=== PATIENT | female | born 1965 | race Caucasian/White ===

== ENCOUNTER 2019-03-03 06:54 | Day surgery (SDC) | payer BC ==
[2019-03-03] MEDS ORDERED: Propofol 200 MG/20 ML SDV IV ONE (06:55)
[2019-03-03] MEDS ORDERED: Sodium Chloride 0.9% 10 ML Syringe FLUSH PRN (07:00)
[2019-03-03] MEDS ORDERED: Lactated Ringers 1,000 ML IV SCH (07:00)
--- NOTE | 2019-03-03 09:03 | PCM.OPNOTE ---
- General Post-Op/Procedure Note Date of Surgery/Procedure: 03/03/19 Operative Procedure(s): c scope with bx Findings: cecal and rectal polyp Pre Op Diagnosis: colon cancer screening Post-Op Diagnosis: cecal and rectal polyp Anesthesia Technique: MAC Primary Surgeon: Juan M Roberson Anesthesia Provider: Angie Tsang Pathology: cecal and rectal polyp Complications: None Condition: Good Free Text/Narrative:: see dictation
--- NOTE | 2019-03-03 15:19 | OR ---
DATE OF OPERATION: 03/03/2019 SURGEON: Juan M Roberson MD PREOPERATIVE DIAGNOSIS: Screening for colon cancer. POSTOPERATIVE DIAGNOSIS: Rectal and cecal polyp. PROCEDURE PERFORMED: Colonoscopy with cold forceps biopsy. INDICATIONS FOR PROCEDURE: This is a 53-year-old white female, who presents for her initial screening colonoscopy. Has a family history of colon polyps with her father. DESCRIPTION OF OPERATION: After an excellent IV sedation was administered, digital rectal exam was performed. No marked abnormality was noted. A flexible colonoscope inserted and advanced to the cecum. Prep was excellent. Following findings were noted: In the cecum, small polypoid lesion, biopsied with cold biopsy forceps and sent for permanent, otherwise unremarkable. Transverse colon, unremarkable. Descending colon, unremarkable. Sigmoid, unremarkable. Rectum, small polyp just above the anal verge, again biopsied. The patient tolerated the procedure well and was taken to recovery in good condition. Results by letter. /[id number] /CINTHIA
--- NOTE | 2019-03-04 08:15 | PCM.HP.2 ---
H&P History of Present Illness - General Date of Service: 03/04/19 Admit Problem/Dx: Admission Diagnosis/Problem Admission Diagnosis/Problem Colonoscopy - History of Present Illness Initial Comments - Free Text/Narative: 53 yo wf due for screening c scope no complaints. Last office visit reviewed. - Related Data Allergies/Adverse Reactions: Allergies Allergy/AdvReac Type Severity Reaction Status Date / Time No Known Allergies Allergy Verified 03/03/19 07:26 Home Medications: Home Meds Acetaminophen 500 mg PO Q4HR PRN 03/02/19 [History] Albuterol [Proventil HFA] 2 puff PO Q4H PRN 03/02/19 [History] Calcium Carb/Vitamin D3/Vit K1 [Viactiv 650 mg-12.5 Mcg Chew] 1 each PO DAILY [History] FLUoxetine HCl [Prozac] 40 mg PO DAILY 03/02/19 [History] Multivit-Min/FA/Lycopen/Lutein [Certavite Sr-Antioxidant Tab] 1 each PO DAILY [History] Naproxen Sodium [Aleve] 220 mg PO BID PRN 03/02/19 [History] Omeprazole Magnesium [Prilosec Otc] 20 mg PO DAILY 03/02/19 [History] Cephalexin [Keflex] 500 mg PO Q6H 03/03/19 [History] Past Medical History Respiratory History: Reports: Asthma Genitourinary History: Reports: Renal Calculus Other Genitourinary History: URETERAL CALCULUS Other OB/BYN History: PREMENSTRUAL TENSION SYNDROME Musculoskeletal History: Reports: Arthritis Other Musculoskeletal History: 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, INFECTED PROSTHETIC KNEE JOINT Psychiatric History: Reports: Anxiety, Depression Oncologic (Cancer) History: Reports: Breast Other Oncologic History: FIBROCYSTIC BREAST Dermatologic History: Reports: Cellulitis - Past Surgical History Other HEENT Surgeries/Procedures: EXTRACTION ERUPTED TOOTH GI Surgical History: Reports: Appendectomy, Hernia, Abdominal Female Surgical History: Reports: Section Musculoskeletal Surgical History: Reports: Arthroscopic Knee, Carpal Tunnel, Knee Replacement Other Musculoskeletal Surgeries/Procedures:: LEFT TOTAL KNEE REVISION, LEFT KNEE MANIPULATION INJECTION, LEFT KNEE ARTHROPLASTY Other Oncologic Surgeries/Procedures: BREAST REDUCTION, MAMMOPLASTY BILATERAL Social & Family History - Tobacco Use Smoking Status *Q: Never Smoker - Caffeine Use Caffeine Use: Reports: Coffee, Soda - Recreational Drug Use Recreational Drug Use: No Drug Use in Last 12 Months: No H&P Review of Systems - Review of Systems: Review Of Systems: See Below Pulmonary: Reports: No Symptoms Cardiovascular: Reports: No Symptoms Gastrointestinal: Reports: No Symptoms Exam - Exam Exam: See Below - Vital Signs Vital Signs: Last Vital Signs Temp 97.9 F 03/03/19 09:00 Pulse 64 03/03/19 09:30 Resp 17 03/03/19 09:30 BP 156/81 H 03/03/19 09:30 Pulse Ox 100 03/03/19 09:30 Weight: 111.7 kg - Exam General: Alert, Oriented, Cooperative GI/Abdominal Exam: Soft, Non-Tender *Q Meaningful Use (ADM) - VTE *Q VTE Pharmacological Contraindications *Q: Patient Scheduled Surgery - Problem List (1) Colon polyp SNOMED Code(s): 08266067 ICD Code: K63.5 - POLYP OF COLON Status: Acute Qualifiers: Colon polyp type: unspecified Colon location: ascending Qualified Code(s) : K63.5 - Polyp of colon (2) Rectal polyp SNOMED Code(s): 15533190 ICD Code: K62.1 - RECTAL POLYP Status: Acute Problem List Initiated/Reviewed/Updated: Yes Orders Last 24hrs: Active Orders 24 hr Category Date Time Status Ready for Discharge [RC] PER UNIT ROUTINE Care 03/03/19 09:01 Active Assessment/Plan Comment:: see clinic note for preop - Mortality Measure Prognosis:: Good
== END 2019-03-03 09:40 | disposition home or self-care (01) ==
LOC: FB.SDS 06:54
PROVIDERS: ATTEND Surgery
DX: Z12.11 Encounter for screening for malignant neoplasm of colon (principal); K63.5 Polyp of colon; K62.1 Rectal polyp; J45.909 Unspecified asthma, uncomplicated; M19.90 Unspecified osteoarthritis, unspecified site; F32.9 Major depressive disorder, single episode, unspecified; F41.9 Anxiety disorder, unspecified; Z83.71 Family history of colonic polyps; Z90.49 Acquired absence of other specified parts of digestive tract
CPT/HCPCS: 45380; 88305; J2704; J7120